=== PATIENT | female | born 1975 | race Caucasian/White ===

== ENCOUNTER → 2024-03-21 | Outpatient (CLI) | payer BC, SELFPAY ==
--- NOTE | 2024-03-21 11:00 | XR_ITS ---
Examination: Pelvic ultrasound, transabdominal, complete Technique: Transabdominal ultrasound of the pelvis performed using grayscale imaging Date and time of exam: March 21, 2024 1104 hours INDICATIONS: Irregular heavy severe menses the last year FINDINGS: Uterus 7.4 x 5.5 x 5.8 cm anteverted Endometrial stripe 0.9 cm No uterine mass or intrauterine gestation Right ovary 2.1 x 1.5 x 1.9 cm arterial flow Left ovary obscured by bowel gas IMPRESSION: No uterine mass or intrauterine gestation
--- NOTE | 2024-03-21 11:00 | XR_ITS ---
Examination: Transvaginal ultrasound of the pelvis, complete Technique: Transvaginal sonographic images pelvis performed using johnston scale imaging Exam date and time: March 21, 2024 1111 hours INDICATIONS: Severe irregular menses one year FINDINGS: Uterus 7.3 x 4.7 x 5.6 cm anteverted Uterine posterior body mass 1.3 x 1.0 x 1.4 cm Endometrial stripe 1.2 cm Right ovary 3.5 x 2.6 cm arterial flow Left ovary 2.0 x 1.6 cm arterial flow No fluid in the cul-de-sac IMPRESSION: Small posterior uterine body area of fibroid degeneration 13 x 10 x 14 mm Recommend 6 month follow-up pelvic sonography.
== END | disposition home or self-care (01) ==
PROVIDERS: PCP Nurse Practitioner Family; Referring Provider Nurse Practitioner Family; Visit Provider Nurse Practitioner Family
DX: D25.9 Leiomyoma of uterus, unspecified (principal)
CPT/HCPCS: 76830; 76856

== ENCOUNTER → 2024-06-07 | Outpatient (CLI) | payer BC, SELFPAY ==
--- NOTE | 2024-06-07 13:59 | XR_ITS ---
Examination: PA lateral chest 2 views Technique: Upright PA lateral chest 2 views Exam date and time: June 03, 2024 1436 hrs. Indications: Coughing difficulty breathing beginning 2 weeks ago. Findings: Normal heart size No lobar pneumonia 12 mm pulmonary nodule right lower lobe which appears to contain calcium Moderate osteopenia Impression: No pneumonia identified In the absence of prior chest films recommend 3 month follow-up PA lateral chest examination to confirm stability of pulmonary nodule right lower lobe
== END | disposition home or self-care (01) ==
PROVIDERS: PCP Nurse Practitioner Family; Referring Provider Nurse Practitioner Family; Visit Provider Nurse Practitioner Family
DX: R91.1 Solitary pulmonary nodule (principal)
CPT/HCPCS: 71046